=== PATIENT | female | born 1965 | race Caucasian/White ===

== ENCOUNTER → 2024-01-10 14:45 | Outpatient (REF) | payer BC, SELFPAY ==
[2024-01-10 14:51] LABS: % Basophils 0.5 % (0-2); % Eosinophils 2.6 % (0-6); % Lymphocytes 27.3 % (20.5-51.1); % Monocytes 10.1 % (1.7-9.3); % Neutrophils 59.5 % (42.2-75.2); Absolute Eosinophils 0.2 10^3/uL (0-0.7); Absolute Lymphocytes 1.6 10^3/uL (1.2-3.4); Absolute Monocytes 0.6 10^3/uL (0.1-0.6); Absolute Neutrophils 3.4 10^3/uL (1.4-6.5); Hematocrit 33.5 % (37.0-47.0); Mean Corp Hgb Conc. 32.8 g/dL (33.0-37.0); Mean Corpuscular Hgb 28.8 pg (27.0-31.0); Mean Corpuscular Volume 87.7 fL (81.0-99.0); Mean Platelet Volume 9.2 fL (7.4-10.4); Platelet Count 338 10^3/uL (130-400); Red Blood Cell Count 3.82 10^6/uL (4.20-5.40); Red Cell Dist. Width 14.9 % (11.5-14.5); White Blood Cell Count 5.7 10^3/uL (4.8-10.8)
== END ==
LOC: OIDL 14:45
PROVIDERS: ATTENDING PHYSICIAN Nurse Practitioner Adult Health
DX: D50.9 Iron deficiency anemia, unspecified (principal)
CPT/HCPCS: 85025

== ENCOUNTER → 2024-07-29 12:51 | Outpatient (REF) | payer BC, SELFPAY | LOC: HWRAD 12:51 | PROVIDERS: ATTENDING PHYSICIAN Family Medicine | DX: S09.90XA Unspecified injury of head, initial encounter (principal); S06.0X1A Concussion with loss of consciousness of 30 minutes or less, initial encounter | CPT/HCPCS: 70450 ==

== ENCOUNTER → 2024-11-06 14:53 | Outpatient (REF) | payer BC, SELFPAY | LOC: PAVMRI 14:53 | PROVIDERS: ATTENDING PHYSICIAN Family Medicine | DX: F07.81 Postconcussional syndrome (principal); Z87.820 Personal history of traumatic brain injury; R29.6 Repeated falls; H53.2 Diplopia | CPT/HCPCS: 70553; A9575 ==